=== PATIENT | male | born 1970 | race Caucasian/White ===

== ENCOUNTER 2016-11-09 07:43 | Emergency (ER) | payer OTHER ==
[~2016-11-09] VITALS: Ht 170.2 cm; Wt 56.2 kg
[~2016-11-09 07:43] MED LIST: EFFIENT10 MG PO; LIBRIUM25 MG PO; LIPITOR80 MG PO; PLAVIX75 MG PO; PRINIVIL10 MG PO; TOPROL XL50 MG PO
[2016-11-09] MEDS ORDERED: PRILOSEC OTC20 MG PO (08:00)
[2016-11-09] MEDS ORDERED: LOPRESSOR50 MG PO (08:02)
[2016-11-09 09:03] LABS: ANION GAP 8 MEQ/L (2-14); CHLORIDE 92 MEQ/L (99-109); POTASSIUM 2.8 MEQ/L (3.7-5.4); SAMPLE HEMOLYSIS CHECK 0; SAMPLE ICTERIC CHECK 0; SAMPLE LIPEMIA CHECK 0; SODIUM 139 MEQ/L (136-147); TOTAL BILIRUBIN 2.1 MG/DL (0.0-1.0)
[2016-11-09 09:09] LABS: ALKALINE PHOSPHATASE 127 IU/L (3-129); GFR ESTIMATE (CALCULATED) > 59 mL/min/; GLUCOSE 99 mg/dL (70-99); LIPASE 29 U/L (1.0-51.0); SERUM ETHYL ALCOHOL 11 mg/dL; UREA NITROGEN (BUN) 9 mg/dL (9-23)
[2016-11-09 10:13] LABS: MCH 43.8 PG (29.0-34.0); MCHC 34.5 G/DL (30.0-36.0); MCV 126.8 FL (86-99); PLAT.SUFFICIENCY ADEQUATE; PLATELET CLUMPS PRESENT - PLATELET COUNT APPEARS ADQ.; PLATELET COUNT UNABLE TO REPORT K/uL (156-360); RBC DIS.WIDTH-CV 13.9 % (11.8-14.6); RBC DIS.WIDTH-SD 58.6 % (39-53); RED BLOOD COUNT 2.76 M/uL (4.00-5.50); WHITE BLOOD COUNT 4.2 K/uL (4.1-10.2)
[2016-11-09 10:55] LABS: ADD MIUA? NO; BILIRUBIN NEGATIVE; BLOOD NEGATIVE; COLOR AMBER ((YELLOW)); GLUCOSE (STRIP) 50; KETONES 5; LEUKOCYTES NEGATIVE; NITRITE NEGATIVE; PROTEIN (STRIP) NEGATIVE; SPECIFIC GRAVITY 1.016 (1.000-1.030); UCUL ADDED? NO
[2016-11-09 11:29] LABS: AMPHETAMINE NEGATIVE (500 ng/mL); BARBITURATES NEGATIVE (200 ng/mL); BENZODIAZEPINES NEGATIVE (150 ng/mL); COCAINE NEGATIVE (150 ng/mL); INTERNAL CONTROLS VALID? YES; METHADONE NEGATIVE (200 ng/mL); METHAMPHETAMINE NEGATIVE (500 ng/mL); OPIATES (MORPHINE) NEGATIVE (100 ng/mL); OXYCODONE NEGATIVE (100 ng/mL); PHENCYCLIDINE NEGATIVE (25 ng/mL); PROPOXYPHENE NEGATIVE (300 ng/mL); THC CANNABINOIDS NEGATIVE (50 ng/mL); TRICYCLIC ANTIDEPRESSANTS NEGATIVE (300 ng/mL)
[2016-11-09 15:30] VITALS: BP 116/82
== END 2016-11-09 15:56 | disposition short-term general hospital (02) ==
LOC: EME 07:43
PROVIDERS: Emergency Medicine
DX: I71.01 Dissection of thoracic aorta (principal); F10.20 Alcohol dependence, uncomplicated; I25.10 Atherosclerotic heart disease of native coronary artery without angina pectoris; Z95.5 Presence of coronary angioplasty implant and graft; R11.2 Nausea with vomiting, unspecified; I10 Essential (primary) hypertension; Z79.02 Long term (current) use of antithrombotics/antiplatelets; Z82.49 Family history of ischemic heart disease and other diseases of the circulatory system; F17.200 Nicotine dependence, unspecified, uncomplicated
CPT/HCPCS: 74177; 80053; 81003; 83690; 85027; 93005; 99281; 99285; G0480; J3480; J7030

== ENCOUNTER 2017-02-05 08:02 | Day surgery (SDC) | payer OTHER ==
[~2017-02-05 08:02] MED LIST changes: +LOPRESSOR50 MG PO; +PRILOSEC OTC20 MG PO
[2017-02-05] MEDS ORDERED: LIPITOR40 MG PO (08:32)
[2017-02-05] MEDS ORDERED: COUMADIN1 MG PO (08:33)
[2017-02-05 09:07] LABS: ANION GAP 8 MEQ/L (2-14); CHLORIDE 93 MEQ/L (99-109); POTASSIUM 2.5 MEQ/L (3.7-5.4); SAMPLE HEMOLYSIS CHECK 0; SAMPLE ICTERIC CHECK 0; SAMPLE LIPEMIA CHECK 0; SODIUM 140 MEQ/L (136-147)
[2017-02-05 09:12] LABS: GFR ESTIMATE (CALCULATED) > 59 mL/min/ (58.99-99999); GLUCOSE 80 mg/dL (70-99); UREA NITROGEN (BUN) 7 mg/dL (9-23)
[2017-02-05 09:25] LABS: INTER. NORMALIZED RATIO 1.5; PROTHROMBIN TIME 17.5 SEC (10.2-12.9)
[2017-02-05 09:26] LABS: HEMATOCRIT 36.4 % (38.0-50.0); MCH 43.1 PG (29.0-34.0); MCHC 37.1 G/DL (30.0-36.0); MCV 116.3 FL (86-99); MEAN PLAT.VOLUME 9.7 uM^3 (9.0-12.4); PLATELET COUNT 359 K/uL (156-360); RBC DIS.WIDTH-CV 15.9 % (11.8-14.6); RBC DIS.WIDTH-SD 68.7 % (39-53); RED BLOOD COUNT 3.13 M/uL (4.00-5.50); WHITE BLOOD COUNT 6.4 K/uL (4.1-10.2)
== END 2017-02-05 15:00 | disposition home or self-care (01) ==
LOC: CATH 08:02
PROVIDERS: Internal Medicine Interventional Cardiology
DX: Z01.810 Encounter for preprocedural cardiovascular examination (principal); R93.8 Abnormal findings on diagnostic imaging of other specified body structures; I25.10 Atherosclerotic heart disease of native coronary artery without angina pectoris; Z95.5 Presence of coronary angioplasty implant and graft; I10 Essential (primary) hypertension; E78.5 Hyperlipidemia, unspecified; Z82.49 Family history of ischemic heart disease and other diseases of the circulatory system
CPT/HCPCS: 80048; 85027; 85610; 93005; C1769; C1887; J1644; J2250; J3010; J3480